=== PATIENT | female | born 1975 | race Caucasian/White ===

== ENCOUNTER 2017-06-02 02:38 | Emergency (ER) | payer BC ==
[2017-06-02] MEDS ORDERED: diPHENhydraMINE IV* 50 MG/ML 1 ml VIAL (BENADRYL) SLOW PUSH ONE (03:03)
[2017-06-02] MEDS ORDERED: Famotidine IV* 10 MG/ML 2 ML (20 mg) IV SLOW PU ONE ×2 (03:04→06:03)
[2017-06-02] MEDS ORDERED: methylPREDNISolone 125 MG* 2 ML VIAL IV ONE (03:04)
[2017-06-02] MEDS ORDERED: NS 0.9% 1000 ML* 1,000 ML IV ONE (03:04)
[2017-06-02] MEDS ORDERED: Ondansetron INJ* 2 MG/ML VIAL IV ONE (04:01)
[2017-06-02] MEDS ORDERED: EPINEPHrine AMP 1 MG/ML IM ONE (05:00)
[2017-06-02] MEDS ORDERED: hydrOXYzine HCL TAB* 50 MG PO ONE (05:01)
--- NOTE | 2017-06-02 06:19 | ED ---
Gabe Jett Gabriel, scribpaulette for Shavon James MD on 06/02/17 at 0326 . Allergic Reaction/Systemic - HPI Summary HPI Summary: This patient is a 41 year old F presenting to [facility] accompanied by her with a chief complaint of hives since yesterday. The patient rates the pain 0/ 10 in severity. Pt took Benadryl at 4pm and 10 pm last night. Patient reports a diffuse, itching rash on her torso and thighs. Patient denies mouth sore and tightening of the throat. Two days ago the pt took bactrim and macrobid. - History of Current Complaint Chief Complaint: EDAllergicReaction Time Seen by Provider: 06/02/17 02:55 Hx Obtained From: Patient Onset/Duration: Still Present Timing: Constant Pain Intensity: 0 Pain Scale Used: 0-10 Numeric Character: Hives Associated Signs And Symptoms: Positive: Negative - mouth sore and tightening of the throat, Other: - diffuse itching rash - Allergies/Home Medications Allergies/Adverse Reactions: Allergies Allergy/AdvReac Type Severity Reaction Status Date / Time sulfamethoxazole Allergy Hives Verified 06/02/17 02:43 [From Bactrim] trimethoprim [From Bactrim] Allergy Hives Verified 06/02/17 02:43 PMH/Surg Hx/FS Hx/Imm Hx Endocrine/Hematology History: Denies: Hx Diabetes Cardiovascular History: Denies: Hx Hypertension, Hx Pacemaker/ICD, Hx Valvular Heart Disease History: Denies: Hx Renal Disease Sensory History: Denies: Hx Hearing Aid EENT History: Denies: Hx Deafness Psychiatric History: Denies: Hx Panic Disorder - Cancer History Hx Chemotherapy: No Hx Radiation Therapy: No Infectious Disease History: No Infectious Disease History: Denies: Traveled Outside the [place] in Last 30 Days - Family History Known Family History: Negative: Renal Disease, Respiratory Disease, Seizure Disorder - Social History Occupation: Employed Full-time Lives: With Family Alcohol Use: Occasionally Hx Substance Use: No Substance Use Type: Reports: None Hx Tobacco Use: No Smoking Status (MU): Never Smoked Tobacco Review of Systems ENT: Negative - throat tightening or mouth sores Positive: Rash - itching diffuse All Other Systems Reviewed And Are Negative: Yes Physical Exam - Summary Physical Exam Summary: VITAL SIGNS: Reviewed. GENERAL: Patient is a well-developed and nourished female who is lying comfortable in the stretcher. Patient is not in any acute respiratory distress. HEAD AND FACE: No signs of trauma. No ecchymosis, hematomas or skull depressions. No sinus tenderness. EYES: PERRLA, EOMI x 2, No injected conjunctiva, no nystagmus. EARS: Hearing grossly intact. Ear canals and tympanic membranes are within normal limits. MOUTH: Oropharynx within normal limits. NECK: Supple, trachea is midline, no adenopathy, no JVD, no carotid bruit, no c- spine tenderness, neck with full ROM. CHEST: Symmetric, no tenderness at palpation LUNGS: Clear to auscultation bilaterally. No wheezing or crackles. CVS: Regular rate and rhythm, S1 and S2 present, no murmurs or gallops appreciated. ABDOMEN: Soft, non-tender. No signs of distention. No rebound no guarding, and no masses palpated. Bowel sounds are normal. EXTREMITIES: FROM in all major joints, no edema, no cyanosis or clubbing. NEURO: Alert and oriented x 3. No acute neurological deficits. Speech is normal and follows commands. SKIN: diffuse vesicular rash all over the body Triage Information Reviewed: Yes Vital Signs On Initial Exam: Initial Vitals Temp Pulse Resp BP Pulse Ox 98.1 F 65 15 122/71 100 06/02/17 02:39 06/02/17 02:39 06/02/17 02:39 06/02/17 02:39 06/02/17 02:39 Vital Signs Reviewed: Yes Diagnostics - Vital Signs Vital Signs Temp Pulse Resp BP Pulse Ox 06/02/17 02:39 98.1 F 65 15 122/71 100 - Laboratory Lab Statement: Any lab studies that have been ordered have been reviewed, and results considered in the medical decision making process. Re-Evaluation - Re-Evaluation First Eval Re-Evaluation Time: 04:56 Change: Unchanged Comment: Pt is still itching. Second Eval Re-Evaluation Time: 06:02 Change: Improved Comment: The rash is not as red and she is not itching. Allergic Reaction Course/Dx - Course Assessment/Plan: This patient is a 41 year old F presenting to [facility] accompanied by her with a chief complaint of hives since yesterday. The patient rates the pain 0/10 in severity. Pt took Benadryl at 4pm and 10 pm last night. Patient reports a diffuse, itching rash on her torso and thighs. Patient denies mouth sore and tightening of the throat. Two days ago the pt took bactrim and macrobid. In the ED course the patient was given Benadryl, epi , Pepcid, atarax, solu-medrol, and IV fluids. Dx allergic reaction. Patient will be discharged with prescription for atarax and deltasone and follow up from PCP. The patient is agreeable with this plan. - Diagnoses Provider Diagnoses: Allergic reaction Discharge - Sign-Out/Discharge Documenting (check all that apply): Discharge - Discharge Plan Condition: Stable Disposition: HOME Prescriptions: hydrOXYzine HCL TAB* [Atarax TAB 50 MG *] 50 mg PO TID PRN #20 tab PRN Reason: Itching predniSONE TAB* [Deltasone TAB*] 40 mg PO DAILY #10 tab Referrals: Anupama Estes MD [Primary Care Provider] - 2 Days Additional Instructions: RETURN TO THE ER FOR ANY NEW OR WORSENING SYMPTOMS The documentation as recorded by the Gabe jackman Gabriel accurately reflects the service I personally performed and the decisions made by , Shavon James MD.
[2017-06-02 06:43] VITALS: BP 117/65
== END 2017-06-02 06:43 | disposition home or self-care (01) ==
LOC: ED 02:38
DX: L27.0 Generalized skin eruption due to drugs and medicaments taken internally (principal); T37.0X5A Adverse effect of sulfonamides, initial encounter; T37.8X5A Adverse effect of other specified systemic anti-infectives and antiparasitics, initial encounter; Y92.9 Unspecified place or not applicable; X58.XXXA Exposure to other specified factors, initial encounter; Z88.2 Allergy status to sulfonamides
CPT/HCPCS: 96372; 96374; 96375; 96376; 99282; A9270-GY; J0171; J1200; J2930

== ENCOUNTER 2018-07-12 18:33 | Emergency (ER) | payer BC ==
[2018-07-12] MEDS ORDERED: Aspirin 81 mg CHEW TAB* 81 MG TAB.CHEW PO ONE (19:41)
--- NOTE | 2018-07-12 19:42 | ED ---
Complex/Multi-Sys Presentation - HPI Summary HPI Summary: Patient is a 42 y/o F presenting to ED with complaints of intermittent hot flashes, chest/throat tightness. Patient reports that tightness is located at her upper chest/throat and has been present for the past few days. She additionally makes note of episodes of waking from sleep experiencing bouts of burning and diaphoretic but denies any such episodes in the past few days. She states she was concerned that she was getting bronchitis, went to [facility] today. EKG was done at the clinic, it read NSR with anterior t wave inversion. Patient was sent to ED for further evaluation. She notes that she did not have any tightness during the EKG at the [facility] and at present. PMHx is denied. No FMHx of cardiac disease is reported. Patient is not a smoker. On triage, it is reported that the patient makes note of experiencing a cough. On triage, pain is rated 2/10, nothing is noted to aggravate/alleviate Sx. Home medications and allergies are reviewed. - History Of Current Complaint Chief Complaint: EDUpperRespComplaint Hx Obtained From: Patient Onset/Duration: Lasting Days - cough, chest/throat tightness, Lasting Weeks - hot flashes, Still Present Timing: Intermittent, Lasting:, Days - cough, chest/throat tightness, Weeks - hot flashes Severity Currently: None Location: Pain At: - chest, throat Aggravating Factor(s): nothing Alleviating Factor(s): nothing Associated Signs And Symptoms: Positive: Cough, Other - hot flashes, chest/ throat tightness - Allergies/Home Medications Allergies/Adverse Reactions: Allergies Allergy/AdvReac Type Severity Reaction Status Date / Time sulfamethoxazole Allergy Hives Verified 07/12/18 18:54 [From Bactrim] trimethoprim [From Bactrim] Allergy Hives Verified 07/12/18 18:54 Home Medications: Home Medications NK [No Home Medications Reported] 07/12/18 [History Confirmed 07/12/18] PMH/Surg Hx/FS Hx/Imm Hx Endocrine/Hematology History: Denies: Hx Diabetes Cardiovascular History: Denies: Hx Hypertension, Hx Pacemaker/ICD, Hx Valvular Heart Disease History: Denies: Hx Renal Disease Sensory History: Denies: Hx Deafness, Hx Hearing Aid Psychiatric History: Denies: Hx Panic Disorder - Cancer History Hx Chemotherapy: No Hx Radiation Therapy: No Infectious Disease History: No Infectious Disease History: Denies: Traveled Outside the [place] in Last 30 Days - Family History Known Family History: Negative: Cardiac Disease, Renal Disease, Respiratory Disease, Seizure Disorder - Social History Alcohol Use: Rare Hx Substance Use: No Substance Use Type: Reports: None Hx Tobacco Use: No Smoking Status (MU): Never Smoked Tobacco Review of Systems Constitutional: Other - POSITIVIE - HOT FLASHES Cardiovascular: Other - POSITIVE - CHEST/THROAT TIGHTNESS Positive: Cough All Other Systems Reviewed And Are Negative: Yes Physical Exam - Summary Physical Exam Summary: VITAL SIGNS: Reviewed. GENERAL: Patient is a well-developed and nourished female who is lying comfortable in the stretcher. Patient is not in any acute respiratory distress. HEAD AND FACE: No signs of trauma. No ecchymosis, hematomas or skull depressions. No sinus tenderness. EYES: PERRLA, EOMI x 2, No injected conjunctiva, no nystagmus. EARS: Hearing grossly intact. Ear canals and tympanic membranes are within normal limits. MOUTH: Oropharynx within normal limits. NECK: Supple, trachea is midline, no adenopathy, no JVD, no carotid bruit, no c- spine tenderness, neck with full ROM CHEST: Symmetric, no tenderness at palpation LUNGS: Clear to auscultation bilaterally. No wheezing or crackles. CVS: Regular rate and rhythm, S1 and S2 present, no murmurs or gallops appreciated. ABDOMEN: Soft, non-tender. No signs of distention. No rebound no guarding, and no masses palpated. Bowel sounds are normal. EXTREMITIES: FROM in all major joints, no edema, no cyanosis or clubbing. NEURO: Alert and oriented x 3. No acute neurological deficits. Speech is normal and follows commands. SKIN: Dry and warm Triage Information Reviewed: Yes Vital Signs On Initial Exam: Initial Vitals Temp Pulse Resp BP Pulse Ox 98.8 F 80 16 148/90 97 07/12/18 18:43 07/12/18 18:43 07/12/18 18:43 07/12/18 18:43 07/12/18 18:43 Vital Signs Reviewed: Yes Diagnostics - Vital Signs Vital Signs Temp Pulse Resp BP Pulse Ox 07/12/18 19:03 75 16 140/92 97 07/12/18 18:43 98.8 F 80 16 148/90 97 - Laboratory Result Diagrams: 07/12/18 19:49 07/12/18 19:49 Lab Statement: Any lab studies that have been ordered have been reviewed, and results considered in the medical decision making process. - EKG 191 Cardiac Rate: NL - rate of 60 BPM EKG Rhythm: Sinus Rhythm Summary of EKG Findings: EKG shwoed NSR with rate of 60 bpm, normal axis, normal interval, no ischemic changes. Re-Evaluation - Re-Evaluation First Eval Re-Evaluation Time: 23:45 Comment: Second trop was negative, she will be discharged to home and follow up with door to door sales representative. Strict return precautions given. She is agreeable with discharge. Complex Multi-Symp Course/Dx Course Of Treatment: Patient is a 42 y/o F presenting to ED with complaints of intermittent hot flashes, chest/throat tightness. Patient reports that tightness is located at her upper chest/throat and has been present for the past few days. She additionally makes note of episodes of waking from sleep experiencing bouts of burning and diaphoretic but denies any such episodes in the past few days. She states she was concerned that she was getting bronchitis , went to [facility] today. EKG was done at the clinic, it read NSR with anterior t wave inversion. Patient was sent to ED for further evaluation. She notes that she did not have any tightness during the EKG at the [facility] clinic and at present. PMHx is denied. No FMHx of cardiac disease is reported. Patient is not a smoker. Phyiscal exam is unremarkable. EKG shwoed NSR with rate of 60 bpm, normal axis, normal interval, no ischemic changes. During ED course, patient received 324 ASA PO. Labs showed APTT 25.9, BUN/creatinine ratio 30.3. BNP 13, first trop 0. EKG done at [facility] showed T-wave inversion in V1- V3. EKG at [facility] was normal. Patient noted that she had no chest tightness when EKG was done at [facility]. It likely that T wave inversion occurred due to EKG lead misplacement. Patient's case was discussed with Dr. Anderson, Dr. Anderson agrees that EKG lead misplacement is likely, states that if EKG and first two trops are negative patient can be discharged to home. Second trop was negative, patient has an atypical story for chest pain, she will be discharged to home and follow up with door to door sales representative. Strict return precautions given. She is agreeable with discharge. - Diagnoses Provider Diagnoses: Atypical chest pain - Physician Notifications Discussed Care Of Patient With: Irena Anderson Time Discussed With Above Provider: 20:26 Instructed by Provider To: Other - It likely that T wave inversion occurred due to EKG lead misplacement. Patient's case was discussed with Dr. Anderson, Dr. Anderson agrees that EKG lead misplacement is likely, states that if EKG and first two trops are negative patient can be discharged to home. Discharge - Sign-Out/Discharge Documenting (check all that apply): Patient Departure - discharge Patient Received Moderate/Deep Sedation with Procedure: No - Discharge Plan Condition: Stable Disposition: HOME Patient Education Materials: Chest Pain (ED) Referrals: Anupama Estes MD [Primary Care Provider] - 2 Days Irena Anderson MD [Medical Doctor] - 2 Days Additional Instructions: PLEASE RETURN TO THE ED IMMEDIATELY FOR WORSENING OR CONCERNING SYMPTOMS. FOLLOW UP WITH LAUNDRY ROOM ATTENDANT AND YOUR PRIMARY CARE PHYSICIAN IN TWO DAYS. - Attestation Statements Document Initiated by Scribe: Yes Documenting Scribe: MARCELINO DUPONT Provider For Whom Tadeo is Documenting (Include Credential): EMMY STEINBERG MD Scribe Attestation: MARCELINO Jett, scribed for EMMY STEINBERG MD on 07/13/18 at 0001. Status of Scribe Document: Ready
[2018-07-12 19:57] LABS: ABS Eosinophils 0.1 10^3/ul (0-0.6); ABS Lymphocytes 1.5 10^3/ul (1.0-4.8); ABS Monocytes 0.5 10^3/ul (0-0.8); ABS Neutrophils 2.5 10^3/ul (1.5-7.7); Eosinophil % 1.4 %; Hematocrit 40 % (35-47); Hemoglobin 13.5 g/dL (12.0-16.0); Lymphocyte % 32.8 %; Mean Corpuscular HGB Conc 34 g/dL (31-36); Mean Corpuscular Hemoglobin 30 pg (27-31); Mean Corpuscular Volume 88 fL (80-97); Mean Platelet Volume 7.8 fL (7.4-10.4); Nucleated Red Blood Cells % 0.1; Platelet Count 248 10^3/uL (150-450); Red Blood Count 4.49 10^6 /uL (3.70-4.87); Red Cell Distribution Width 13 % (10.5-15); White Blood Count 4.7 10^3/uL (3.5-10.8)
[2018-07-12 20:05] LABS: Activated Partial Thrombo Time 25.9 seconds (26.0-36.3); INR 0.92 (0.82-1.09)
[2018-07-12 20:17] LABS: Albumin 4.2 g/dL (3.2-5.2); Albumin/Globulin Ratio 1.6 (1-3); BUN/Creatinine Ratio 30.3 (8-20); Calcium 9.6 mg/dL (8.6-10.3); EGFR African American 100.5 (>60); EGFR Non-African American 83.1 (>60); Globulin 2.7 g/dL (2-4); Magnesium 2.2 mg/dL (1.9-2.7); Total Bilirubin 0.4 mg/dL (0.2-1.0); Total Protein 6.9 g/dL (6.4-8.9)
[2018-07-12 20:45] LABS: Potassium 3.8 mmol/L (3.5-5.0)
[2018-07-12 23:58] VITALS: BP 126/87
== END 2018-07-12 23:47 | disposition home or self-care (01) ==
LOC: ED 18:33
DX: R07.89 Other chest pain (principal); R05 Cough; R23.2 Flushing; R07.0 Pain in throat; Z88.2 Allergy status to sulfonamides
CPT/HCPCS: 36415; 80053; 83735; 83880; 84484; 85025; 85610; 85730; 93005; 99283; A9270-GY